=== PATIENT | male | born 1970 | race Two or more races ===

== ENCOUNTER 2018-02-21 23:56 | Inpatient (IN) | payer MEDICAID ==
[~2018-02-21] VITALS: Ht 170.2 cm; Wt 69.0 kg
[2018-02-22] VITALS (8 sets, daily range): BP systolic 107–149; BP diastolic 73–96
--- NOTE | 2018-02-22 00:05 | NUR ---
PT BIBA FROM RETIREMENT, PT PER EMT'S WASS ENT HERE FOR VOMITING COFFEE GROUND EMESIS X 3 HOURS PRIOR TO ARRIVAL,PT HAD ONE EPISODE OF VOMITING WHILE IN ER, PT IN BEDK, RT AT BEDSIDE, PT IS A TRACH TO VENT PT, VENT SETTINGS ARE AC 16, TIDAL VOLUME 450, O2 45%, PEEP OF 5, IV PLACED, LABS AND CULTURES DRAWN AND SENT TO LAB, AT BEDSIDE, WILL CONTINUE TO MONITOR.
[2018-02-22] MEDS ORDERED: ONDANSETRON HCL/PF 4 MG/2 ML VIAL ONE (00:19)
[2018-02-22] MEDS ORDERED: PANTOPRAZOLE 40 MG VIAL ONE (00:24)
--- NOTE | 2018-02-22 00:27 | NUR ---
PT RECEIVED FROM TRANSPORT VENTILATED VIA TRACH WITH VENTILATOR. PT PLACED ON VENT WITH SETTINGS PER TRANSPORT. AMBU BAG AT BEDSIDE ALARMS SET AND AUDIBLE. DISCONNECT ALARMS CHECKED. VENT PLUGGED INTO RED OUTLET. PT HAS INCREASED RR AT THIS TIME Addendum: 02/22/18 at 0030 by TYRONE DANIELS RT Amended: Links added.
[2018-02-22] MEDS ORDERED: PANTOPRAZOLE 80 MG in IV NS 0.9% 500 ML IV ONE (00:30)
[2018-02-22] MEDS ORDERED: PANTOPRAZOLE 80 MG in IV NS 0.9% 100 ML IV ONE (00:30)
[2018-02-22] MEDS ORDERED: IV NS 0.9% 500 ML BAG IV ONE (00:30)
[2018-02-22] MEDS ORDERED: ONDANSETRON HCL/PF 4 MG/2 ML VIAL IVP ONE (00:30)
[2018-02-22] MEDS ORDERED: ACETAMINOPHEN 650 MG/SUPP.RECT RC ONE ×2 (00:39→01:00)
[2018-02-22 00:45] LABS: BASOPHILS % (AUTO) 0.5 % (0.0-2.0); EOSINOPHILS % (AUTO) 0.7 % (0.0-6.0); HEMATOCRIT 39 % (39-51); HEMOGLOBIN 12.8 g/dL (13.5-17.5); LYMPHOCYTES # (AUTO) 1.2 /CMM (0.8-4.8); LYMPHOCYTES % (AUTO) 10.8 % (20.0-44.0); MEAN CORPUSCULAR HGB CONC 33 g/dl (31.0-36.0); MEAN CORPUSCULAR VOLUME 76 fL (80-96); MONOCYTES % (AUTO) 2.3 % (2.0-12.0); NEUTROPHILS # (AUTO) 9.5 /CMM (1.8-8.9); NEUTROPHILS % (AUTO) 85.7 % (43.0-81.0); PLATELET COUNT (AUTO) 405 /CMM (150-450); RDW COEFFICIENT OF VARIATION 15.8 (11.5-15.0); RED BLOOD CELL COUNT(AUTO) 5.16 MIL/uL (4.5-6.0)
[2018-02-22 00:46] LABS: BASOPHILS # (AUTO) 0.1 /CMM (0.0-0.2); MONOCYTES # (AUTO) 0.3 /CMM (0.1-1.30)
[2018-02-22 00:59] LABS: CALCIUM, SERUM 9.7 mg/dL (8.5-10.1); CARBON DIOXIDE 30 mmol/L (21-32); CHLORIDE 103 mmol/L (98-107); CREATININE 0.7 mg/dL (0.6-1.3); GLUCOSE 123 mg/dL (74-106); INR 0.93 (0.87-1.13); POTASSIUM 3.8 mmol/L (3.5-5.1); SODIUM SERUM 144 mmol/L (136-145); UREA NITROGEN, BLOOD 22 mg/dL (7-18)
--- NOTE | 2018-02-22 01:00 | NUR ---
BLAKE PLACED PER MD ORDER, URINE COLLECTED AND SENT TO LAB, WILL CONTINUE TO MONITOR.
[2018-02-22 01:03] LABS: ALANINE AMINOTRANSFERASE 47 U/L (12-78); ALBUMIN 3.7 g/dL (3.4-5.0); ALKALINE PHOSPHATASE 111 U/L (46-116); ASPARTATE AMINOTRANSFERASE 42 U/L (15-37); BILIRUBIN,DIRECT 0.1 mg/dL (0.0-0.2); BILIRUBIN,TOTAL 0.2 mg/dL (0.2-1.0); LIPASE 199 U/L (73-393); TOTAL PROTEIN, SERUM 9.7 g/dL (6.4-8.2)
[2018-02-22 01:06] LABS: TROPONIN I < 0.017 ng/mL (0.00-0.056)
[2018-02-22 01:10] LABS: APPEARANCE,URINE CLEAR (CLEAR); BILIRUBIN,URINE NEGATIVE (NEGATIVE); BLOOD, URINE 3+ Ery/uL (NEGATIVE); COLOR,URINE YELLOW (YELLOW); KETONES,URINE NEGATIVE (NEGATIVE); LEUKOCYTE ESTERASE ,URINE TRACE (NEGATIVE); NITRITE, URINE NEGATIVE (NEGATIVE); PH,URINE 8.5 (5.0-8.0); PROTEIN,URINE TRACE mg/dl (NEGATIVE); UGLUCOSE NEGATIVE (NEGATIVE); UROBILINOGEN,URINE 0.2 EU/dL (0.2)
--- NOTE | 2018-02-22 01:23 | NUR ---
PT GOING TO 117-1
[2018-02-22 01:37] LABS: BACTERIA,URINE None seen /HPF (None Seen); SQUAMOUS EPITHELIAL CELL,UR Few /HPF (None Seen)
--- NOTE | 2018-02-22 03:00 | NUR ---
PT SLEEPING IN BED, NAD NOTED MD PA MADE AWARE WILL CONITNUE TO MONITOR.
[2018-02-22] MEDS ORDERED: MAGNESIUM HYDROXIDE 30 ML UDC PO PRN (03:30)
[2018-02-22] MEDS ORDERED: Z GUARD REMEDY 2 OZ OINT TP PRN (03:30)
[2018-02-22] MEDS ORDERED: MAG HYDROX/AL HYDROX/SIMETH 30 ML UDC PO PRN (03:30)
[2018-02-22] MEDS ORDERED: ACETAMINOPHEN 325 MG TABLET PO PRN (03:30)
[2018-02-22] MEDS ORDERED: ONDANSETRON HCL/PF 4 MG/2 ML VIAL IVP PRN (03:30)
[2018-02-22] MEDS: IV NS 0.9% 1,000 ML IV PRN ×2 (04:06→17:26)
[2018-02-22] MEDS ORDERED: CEFTRIAXONE 1 G VIAL ONE (04:12)
[2018-02-22] MEDS ORDERED: LACT1CAP61 PO (05:02)
--- NOTE | 2018-02-22 05:08 | NUR ---
ADMISSION NOTES PATIENT CAME FROM ER @ 3:40. RECEIVED REPORT FROM SRIKANTH, ER NURSE. PATIENT CAME VIA GURNEY. CAME WITH PROTONIX DRIP RUNNING 52 ML PER HOUR. PATIENT WITH CLAMPLED GTUBE. ON TRACH/VENT. CLEANED PATIENT AND KEPT COMFORTABLE. ATTACHED TELE MONITOR. RECEIVED MEDS AND ADVANCED DIRECTIVES FROM [facility]. SPOKE WITH DR MC REGARDING PATIENT'S DNR STATUS IN HOSPITAL/
[2018-02-22] MEDS: CEFTRIAXONE 1 G in IV D5W 50 ML IV SCH (05:14)
[2018-02-22] MEDS ORDERED: DOCU-141 GT (06:12)
[2018-02-22] MEDS ORDERED: FOLI100T GT (06:12)
[2018-02-22] MEDS ORDERED: ONDA4TAB5 PO (06:12)
[2018-02-22] MEDS ORDERED: ASCO500T9 GT (06:12)
[2018-02-22] MEDS ORDERED: DEXL60CA3 GT (06:12)
[2018-02-22] MEDS ORDERED: LEVE1000 GT (06:12)
[2018-02-22] MEDS ORDERED: POTA20TA83 GT (06:12)
[2018-02-22] MEDS ORDERED: CHLO473M3 PO (06:12)
[2018-02-22] MEDS ORDERED: ACET-868 GT (06:12)
[2018-02-22] MEDS ORDERED: METO10PO GT (06:12)
[2018-02-22] MEDS ORDERED: IPRA3AMP23 IH ×2 (06:12)
[2018-02-22] MEDS ORDERED: FERR325T23 GT (06:12)
[2018-02-22] MEDS ORDERED: CRAN425C6 GT (06:12)
--- NOTE | 2018-02-22 16:06 | NUR ---
PT GISSELLE'D ON MECHANICAL VENT. SX DONE T/O SHIFT. PT GISSELLE PATENT AND SECURE. AMBU BAG AT BEDSIDE. VENT PLUGGED INTO RED OUTLET. ALARMS ARE ON AND AUDIBLE. Addendum: 02/22/18 at 1607 by PRADIP CHRISTOPHER RT Amended: Links added.
[2018-02-22] MEDS: HYDROCODONE/APAP 5/325MG 1 EACH TABLET PO PRN (19:59)
[2018-02-23] VITALS (7 sets, daily range): BP systolic 113–146; BP diastolic 55–82
[2018-02-23] MEDS: CEFTRIAXONE 1 G in IV D5W 50 ML IV SCH (02:52)
[2018-02-23 06:45] LABS: CALCIUM, SERUM 8.6 mg/dL (8.5-10.1); CREATININE 0.6 mg/dL (0.6-1.3); MAGNESIUM 2.4 mg/dL (1.8-2.4); PHOSPHORUS 3.1 mg/dL (2.5-4.9); POTASSIUM 3.7 mmol/L (3.5-5.1)
[2018-02-23 06:51] LABS: BASOPHILS % (AUTO) 0.5 % (0.0-2.0); EOSINOPHILS % (AUTO) 2.4 % (0.0-6.0); HEMATOCRIT 30 % (39-51); HEMOGLOBIN 9.8 g/dL (13.5-17.5); LYMPHOCYTES # (AUTO) 1.5 /CMM (0.8-4.8); LYMPHOCYTES % (AUTO) 22.1 % (20.0-44.0); MEAN CORPUSCULAR HGB CONC 33 g/dl (31.0-36.0); MEAN CORPUSCULAR VOLUME 77 fL (80-96); MONOCYTES # (AUTO) 0.3 /CMM (0.1-1.30); MONOCYTES % (AUTO) 4.2 % (2.0-12.0); NEUTROPHILS # (AUTO) 4.7 /CMM (1.8-8.9); NEUTROPHILS % (AUTO) 70.8 % (43.0-81.0); PLATELET COUNT (AUTO) 273 /CMM (150-450); RDW COEFFICIENT OF VARIATION 15.9 (11.5-15.0); RED BLOOD CELL COUNT(AUTO) 3.89 MIL/uL (4.5-6.0); WHITE BLOOD COUNT (AUTO) 6.7 K/uL (4.3-11.0)
[2018-02-23 07:07] LABS: THYROID STIMULATING HORMONE 0.425 uIU/mL (0.358-3.74)
[2018-02-23] MEDS: IV NS 0.9% 1,000 ML IV PRN (07:21)
--- NOTE | 2018-02-23 07:35 | NUR ---
RN OPENING NOTES RECEIVED PT. PT IS STABLE AND AWAKE/RESTING IN BED. PT IS OBTUNDED. TRACH/VENT DEPENDENT, VENT SETTINGS IN PLACE PER ORDER. IV ACCESS LOCATED ON LEFT THUMB 18G, CURRENTLY INFUSING NS AT 75 ML/HR. PT IS CURRENTLY NPO, WILL F/U WITH MD FOR NUTRITION INTAKE F/U. SAFETY MEASURES IN PLACE, CALL LIGHT WITHIN REACH. WILL CONTINUE TO MONITOR.
--- NOTE | 2018-02-23 17:40 | NUR ---
PATIENT RECEIVED TRACHED ON MECHANICAL VENTILATION. VENT PLUGGED INTO RED OUTLET. AMBU BAG @ HOB. SUCTION DONE, T/O SHIFT. MODERATE THICK YELLOW SECRETIONS NOTED. ALARMS ON AND AUDIBLE. NO SOB NOTED T/O SHIFT. MONITORED CLOSELY. Addendum: 02/23/18 at 1742 by WILL FRANKS RT Amended: Links added.
--- NOTE | 2018-02-23 18:22 | NUR ---
RN CLOSING NOTES PT IN BED RESTING. NO S/S OF RESP DISTRESS OR SOB, VENT SETTINGS REMAIN IN PLACE. PT DOES NOT APPEAR TOP BE IN PAIN AT THIS TIME. PT REMAINS NPO, HOWEVER IS ON IV FLUID INFUSION OF D5NS. LEFT THUMB IV PULLED OUT, 22G INSERTED ONTO LEFT FOOT. PT IS STILL AWAITING GI CONSULT FOR POTENTIAL BLEED. PT HAS HAD NO BM FOR OB STOOL COLLECTION. ALL PT NEEDS ANTICIPATED AND MET, SAFETY MEASURES IN PLACE, CALL LIGHT WITHIN REACH. WILL ENDORSE TO LITERACY COACH FOR MAXIMO.
[2018-02-23] MEDS: IV D5/ 0.9% NACL 1,000 ML IV PRN (18:49)
--- NOTE | 2018-02-23 20:00 | NUR ---
RECEIVED PATIENT IN BED. PATIENT IS CHRONIC VENT/TRACH, OBTUNDENT. VSS, AFEBRILE NO DISTRESS NOTED. PATIENT IS TURNED AND REPOSITIONED FOR MORE COMFORT. CONTINUE TO MONITOR
[2018-02-24] VITALS: BP 112/88
[2018-02-24 04:00] VITALS: BP 112/89
[2018-02-24] MEDS ORDERED: CEFTRIAXONE 1 G in IV NS 0.9% 50 ML IV SCH (04:00)
[2018-02-24] MEDS: IV D5/ 0.9% NACL 1,000 ML IV PRN ×2 (04:07→19:01)
[2018-02-24 08:00] VITALS: BP 136/71
--- NOTE | 2018-02-24 08:00 | NUR ---
ms rn received patient on bed,non verbal patient, vent dependent, no s/s of pain, reposition for comfort. all needs attended.
[2018-02-24 10:52] LABS: BASOPHILS % (AUTO) 0.5 % (0.0-2.0); EOSINOPHILS % (AUTO) 2.3 % (0.0-6.0); HEMATOCRIT 31 % (39-51); HEMOGLOBIN 10.1 g/dL (13.5-17.5); LYMPHOCYTES # (AUTO) 1.7 /CMM (0.8-4.8); LYMPHOCYTES % (AUTO) 25.3 % (20.0-44.0); MEAN CORPUSCULAR HGB CONC 33 g/dl (31.0-36.0); MEAN CORPUSCULAR VOLUME 76 fL (80-96); MONOCYTES # (AUTO) 0.5 /CMM (0.1-1.30); MONOCYTES % (AUTO) 6.7 % (2.0-12.0); NEUTROPHILS # (AUTO) 4.5 /CMM (1.8-8.9); NEUTROPHILS % (AUTO) 65.2 % (43.0-81.0); PLATELET COUNT (AUTO) 275 /CMM (150-450); RDW COEFFICIENT OF VARIATION 15.9 (11.5-15.0); RED BLOOD CELL COUNT(AUTO) 4.07 MIL/uL (4.5-6.0); WHITE BLOOD COUNT (AUTO) 6.9 K/uL (4.3-11.0)
--- NOTE | 2018-02-24 11:00 | NUR ---
ms rn was seen by [place] [facility] w/ order to put pt on npo, until cleared by gi.
[2018-02-24 11:02] LABS: CREATININE 0.5 mg/dL (0.6-1.3); POTASSIUM 3.4 mmol/L (3.5-5.1)
[2018-02-24] MEDS: LEVETIRACETAM SOL (5 ML) 100 MG/ML UDC GT SCH ×2 (11:57→21:34)
[2018-02-24 12:00] VITALS: BP 124/72
[2018-02-24] MEDS ORDERED: ONDANSETRON 4 MG TAB.RAPDIS PO PRN (12:00)
[2018-02-24] MEDS ORDERED: Medication Not On Formulary EA (Ipratropium/Albuterol Sulfate (Duoneb 2.5-0.5 Mg/3 Ml So IH SCH (12:00)
[2018-02-24] MEDS ORDERED: Medication Not On Formulary EA (Ipratropium/Albuterol Sulfate (Duoneb 2.5-0.5 Mg/3 Ml So IH PRN (12:00)
[2018-02-24] MEDS: LACTOBACILLUS RHAMNOSUS GG 1 EACH CAP.SPRINK PO SCH (12:00)
[2018-02-24] MEDS: POTASSIUM CL. PREMIX PERIPHER. 50 ML IV SCH ×2 (13:07→17:27)
[2018-02-24] MEDS: METOCLOPRAMIDE HCL 10 MG/10 ML UDC GT SCH ×2 (13:30→17:27)
[2018-02-24] MEDS: ALBUTEROL FS 2.5 MG/3 ML VIAL.NEB NEB SCH ×2 (13:30→20:19)
[2018-02-24] MEDS ORDERED: IPRATROPIUM NEB FS 0.5 MG/2.5 ML AMPUL.NEB NEB PRN (13:30)
[2018-02-24] MEDS: IPRATROPIUM NEB FS 0.5 MG/2.5 ML AMPUL.NEB NEB SCH ×2 (13:30→20:19)
[2018-02-24] MEDS ORDERED: ALBUTEROL FS 2.5 MG/3 ML VIAL.NEB NEB PRN (13:30)
--- NOTE | 2018-02-24 15:05 | NUR ---
RT 1300 TX NOT GIVEN RT NOT MADE AWARE WILL CONTINUE TXS
[2018-02-24 16:00] VITALS: BP 108/75
--- NOTE | 2018-02-24 16:00 | NUR ---
ms rn was seen by tonia martínez,endy multani w/ order to continue/start feeding and npo post midnight, fo egd in am.
--- NOTE | 2018-02-24 16:20 | NUR ---
ms rn callled mom for telephone consent, line is disconnected. called brother, no one answering phone, left message for egd consent to be done.
[2018-02-24] MEDS ORDERED: Medication Not On Formulary EA (Cranberry Extract (Cranberry) 425 MG) GT SCH (17:00)
--- NOTE | 2018-02-24 17:21 | NUR ---
RT PATIENT RECEIVED TRACHED ON MECHANICAL VENTILATION. VENT PLUGGED INTO RED OUTLET. AMBU BAG @ HOB. SUCTION DONE, T/O SHIFT. MODERATE THICK YELLOW SECRETIONS NOTED. ALARMS ON AND AUDIBLE. NO SOB NOTED T/O SHIFT. MONITORED CLOSELY.
[2018-02-24] MEDS: FERROUS SULFATE (325 MG) 325 MG/TAB TABLET GT SCH (17:27)
[2018-02-24] MEDS: CHLORHEXIDINE GLUCONATE 15 ML UDC MM SCH (17:28)
--- NOTE | 2018-02-24 18:44 | NUR ---
ms nr called brother again for consent, left message, awaiting for him to call back.
[2018-02-24 20:00] VITALS: BP 134/76
[2018-02-24] MEDS: HYDROCODONE/APAP 5/325MG 1 EACH TABLET PO PRN (21:34)
[2018-02-25] VITALS (8 sets, daily range): BP systolic 58–145; BP diastolic 58–96
[2018-02-25] MEDS: METOCLOPRAMIDE HCL 10 MG/10 ML UDC GT SCH ×4 (00:41→19:31)
[2018-02-25] MEDS: ALBUTEROL FS 2.5 MG/3 ML VIAL.NEB NEB SCH ×4 (01:24→20:16)
[2018-02-25] MEDS: IPRATROPIUM NEB FS 0.5 MG/2.5 ML AMPUL.NEB NEB SCH ×4 (01:24→20:16)
[2018-02-25 07:08] LABS: BASOPHILS # (AUTO) 0.1 /CMM (0.0-0.2); BASOPHILS % (AUTO) 0.9 % (0.0-2.0); EOSINOPHILS % (AUTO) 2.5 % (0.0-6.0); HEMATOCRIT 36 % (39-51); HEMOGLOBIN 11.6 g/dL (13.5-17.5); LYMPHOCYTES # (AUTO) 1.6 /CMM (0.8-4.8); LYMPHOCYTES % (AUTO) 24.4 % (20.0-44.0); MEAN CORPUSCULAR HGB CONC 32 g/dl (31.0-36.0); MEAN CORPUSCULAR VOLUME 77 fL (80-96); MONOCYTES # (AUTO) 0.3 /CMM (0.1-1.30); MONOCYTES % (AUTO) 4.4 % (2.0-12.0); NEUTROPHILS # (AUTO) 4.5 /CMM (1.8-8.9); NEUTROPHILS % (AUTO) 67.8 % (43.0-81.0); PLATELET COUNT (AUTO) 233 /CMM (150-450); RDW COEFFICIENT OF VARIATION 15.8 (11.5-15.0); RED BLOOD CELL COUNT(AUTO) 4.67 MIL/uL (4.5-6.0); WHITE BLOOD COUNT (AUTO) 6.7 K/uL (4.3-11.0)
[2018-02-25 07:14] LABS: ALBUMIN 3.2 g/dL (3.4-5.0); BILIRUBIN,TOTAL 0.2 mg/dL (0.2-1.0); CALCIUM, SERUM 9.1 mg/dL (8.5-10.1); CREATININE 0.6 mg/dL (0.6-1.3); PHOSPHORUS 3.8 mg/dL (2.5-4.9); POTASSIUM 3.8 mmol/L (3.5-5.1); TOTAL PROTEIN, SERUM 8.5 g/dL (6.4-8.2)
[2018-02-25] MEDS ORDERED: PANTOPRAZOLE 40 MG TABLET.DR PO SCH ×2 (07:30→17:00)
--- NOTE | 2018-02-25 08:00 | NUR ---
WOOD TOOL MAKER AM NOTES RECEIVED PT. PT IS STABLE AND AWAKE/RESTING IN BED. PT IS OBTUNDED. TRACH/VENT DEPENDENT, VENT SETTINGS IN PLACE PER ORDER. IV ACCESS LOCATED ON RT HAND #[id number] CURRENTLY INFUSING D5NS AT 75 ML/HR. PT IS CURRENTLY NPO, WITH PENDING EGD PROCEDURE DUE TO PENDING CONSENTS TO BE SIGNED.CALLED PT'S BROTHER SEVERAL TIMES SINCE YESTERDAY AND ATTEMPTED TO CALL HIM AGAIN THIS AM 2X AND LEFT A MESSAGE IN HIS VM.AWAITING FOR LEVAR TO RETURN CALL.SAFETY MEASURES IN PLACE, CALL LIGHT WITHIN REACH. WILL CONTINUE TO MONITOR.
[2018-02-25] MEDS: ASCORBIC ACID 500 MG TABLET GT SCH (08:21)
[2018-02-25] MEDS: MULTIPLE VIT (LYCOPENE/FA/MV,CA,IRON,MIN/LUT)1 TAB GT SCH (08:21)
[2018-02-25] MEDS: FERROUS SULFATE (325 MG) 325 MG/TAB TABLET GT SCH ×2 (08:21→16:30)
[2018-02-25] MEDS: LEVETIRACETAM SOL (5 ML) 100 MG/ML UDC GT SCH ×2 (08:21→21:05)
[2018-02-25] MEDS: LACTOBACILLUS RHAMNOSUS GG 1 EACH CAP.SPRINK PO SCH (08:22)
[2018-02-25] MEDS: POTASSIUM CHLORIDE 20 MEQ TAB.PRT.SR PO SCH (08:22)
[2018-02-25] MEDS: CHLORHEXIDINE GLUCONATE 15 ML UDC MM SCH ×2 (08:23→16:30)
[2018-02-25] MEDS ORDERED: Medication Not On Formulary EA (Dexlansoprazole (Dexilant) 30 MG) GT SCH (09:00)
[2018-02-25] MEDS ORDERED: DOCUSATE SODIUM 100 MG CAPSULE PO SCH (09:00)
--- NOTE | 2018-02-25 09:34 | NUR ---
CALLED PT'S BROTHER,LEVAR SALINAS AND ABLE TO OBTAIN CONSENTS VIA PHONE FOR EGD PROCEDURE.CALLED [facility] AND SPOKE TO MARCY SAYING SHE WILL CHECK WITH ME ABOUT THE EGD PROCEDURE.
[2018-02-25] MEDS: IV D5/ 0.9% NACL 1,000 ML IV PRN (10:46)
--- NOTE | 2018-02-25 11:41 | NUR ---
S/P EGD PROCEDURE DONE BY DONNIE DUMONT WITH STABLE V/S.BP 125/84 HR 89 RR 16 T 98.2 AND 96% O2 SAT.RESUMED ALL MEDS AND FEEDING PER MD.
[2018-02-25] MEDS ORDERED: JEVITY 1.2 CAL 1,000 ML BOTTLE GT PRN (13:00)
[2018-02-25] MEDS: JEVITY 1.2 CAL 1,000 ML BOTTLE GT PRN (15:47)
[2018-02-25] MEDS: HYDROCODONE/APAP 5/325MG 1 EACH TABLET PO PRN ×2 (16:30→21:06)
--- NOTE | 2018-02-25 18:18 | NUR ---
PT RESTING IN BED WITH ONGOING JEVITY GT FEEDING RUNNING AT 35 ML/HR TOLERATING WELL.WITH HOB ELEVATED.SUCTIONED LARGE AMOUNT OF SALIVA SECRETIONS.TRACH CARE DONE OFTEN.KEPT CLEAN AND DRY.NO S/S OF SOB OR DISCOMFORT.NORCO GIVEN IS EFFECTIVE WITH ONGOING IVF OF D5NS AT 75 ML/HR INFUSING WELL TO RT HAND.
[2018-02-26] VITALS: BP 103/46
[2018-02-26] MEDS: ALBUTEROL FS 2.5 MG/3 ML VIAL.NEB NEB SCH ×4 (02:11→19:52)
[2018-02-26] MEDS: IPRATROPIUM NEB FS 0.5 MG/2.5 ML AMPUL.NEB NEB SCH ×4 (02:11→19:52)
[2018-02-26] MEDS: METOCLOPRAMIDE HCL 10 MG/10 ML UDC GT SCH ×4 (02:45→20:20)
[2018-02-26 04:00] VITALS: BP 116/62
[2018-02-26] MEDS: IV D5/ 0.9% NACL 1,000 ML IV PRN ×2 (05:14→16:52)
[2018-02-26] MEDS: HYDROCODONE/APAP 5/325MG 1 EACH TABLET PO PRN ×2 (05:14→12:30)
[2018-02-26 07:12] LABS: BASOPHILS # (AUTO) 0.1 /CMM (0.0-0.2); BASOPHILS % (AUTO) 0.9 % (0.0-2.0); EOSINOPHILS % (AUTO) 2.3 % (0.0-6.0); HEMATOCRIT 35 % (39-51); LYMPHOCYTES % (AUTO) 25.8 % (20.0-44.0); MEAN CORPUSCULAR HGB CONC 32 g/dl (31.0-36.0); MEAN CORPUSCULAR VOLUME 77 fL (80-96); MONOCYTES # (AUTO) 0.5 /CMM (0.1-1.30); MONOCYTES % (AUTO) 5.8 % (2.0-12.0); NEUTROPHILS # (AUTO) 5.1 /CMM (1.8-8.9); NEUTROPHILS % (AUTO) 65.2 % (43.0-81.0); RDW COEFFICIENT OF VARIATION 15.8 (11.5-15.0); WHITE BLOOD COUNT (AUTO) 7.8 K/uL (4.3-11.0)
--- NOTE | 2018-02-26 07:20 | NUR ---
television actor initial notes Received patient in bed, awake, head of bed elevated, no SOB or distress noted, on mechanical vent and tolerated well, 02 sat of 98%, IV intact and patent with IVF infusing well. Jevity infusing well@ 35ml/hr. Patient is obtunded, open his eyes. On tele monitor SR heart rate of 80, no facial grimace noted. Cortes in placed attached to drainage bag. Will continue to monitor accordingly.
[2018-02-26 08:00] VITALS: BP 153/86
[2018-02-26 08:00] LABS: PLATELET COUNT (AUTO) 227 /CMM (150-450)
[2018-02-26 08:39] LABS: CREATININE 0.6 mg/dL (0.6-1.3); MAGNESIUM 2.2 mg/dL (1.8-2.4); PHOSPHORUS 3.7 mg/dL (2.5-4.9); POTASSIUM 3.6 mmol/L (3.5-5.1)
[2018-02-26] MEDS: ACETAMINOPHEN 650 MG/20.3 ML UDC PO PRN (08:53)
[2018-02-26] MEDS: ASCORBIC ACID 500 MG TABLET GT SCH (08:53)
[2018-02-26] MEDS: CHLORHEXIDINE GLUCONATE 15 ML UDC MM SCH ×2 (08:53→16:43)
[2018-02-26] MEDS: MULTIPLE VIT (LYCOPENE/FA/MV,CA,IRON,MIN/LUT)1 TAB GT SCH (08:53)
[2018-02-26] MEDS: LEVETIRACETAM SOL (5 ML) 100 MG/ML UDC GT SCH ×2 (08:53→20:20)
[2018-02-26] MEDS: POTASSIUM CHLORIDE 20 MEQ TAB.PRT.SR PO SCH (08:53)
[2018-02-26] MEDS: FERROUS SULFATE (325 MG) 325 MG/TAB TABLET GT SCH ×2 (08:53→16:43)
[2018-02-26] MEDS: LACTOBACILLUS RHAMNOSUS GG 1 EACH CAP.SPRINK PO SCH (08:53)
[2018-02-26] MEDS: DOCUSATE SODIUM LIQ 100 MG/10 ML UDC GT SCH (09:51)
[2018-02-26] MEDS: PANTOPRAZOLE 40 MG VIAL IV SCH (09:51)
[2018-02-26] MEDS ORDERED: PANT40TA2 PO (10:31)
[2018-02-26 12:00] VITALS: BP 132/78
[2018-02-26 16:00] VITALS: BP 121/62
[2018-02-26] MEDS: JEVITY 1.2 CAL 1,000 ML BOTTLE GT PRN (16:48)
--- NOTE | 2018-02-26 19:21 | NUR ---
telegraph installer closing notes All needs provided, attended, and anticipated, patient in stable condition. Endorsed to next shift RN to continue care. Call light with in reach.
--- NOTE | 2018-02-26 19:35 | NUR ---
telegraph service rater initial notes Received patient in bed, awake, head of bed elevated, no SOB or distress noted, on mechanical vent and tolerated well, 02 sat of 100%, IV intact and patent to right hand, with IVF infusing well. Jevity infusing well @ 35ml/hr. Patient is obtunded, open his eyes. On tele monitor SR heart rate of 71/min, no facial grimace noted. Cortes in placed attached to drainage bag draining yellow clear urine. bed in low locked position, call light within reach, safety measures in place. Will continue to monitor accordingly.
[2018-02-26 20:00] VITALS: BP 119/66
[2018-02-27] VITALS (7 sets, daily range): BP systolic 113–151; BP diastolic 74–82
[2018-02-27] MEDS: IPRATROPIUM NEB FS 0.5 MG/2.5 ML AMPUL.NEB NEB SCH ×4 (01:34→20:44)
[2018-02-27] MEDS: ALBUTEROL FS 2.5 MG/3 ML VIAL.NEB NEB SCH ×4 (01:34→20:43)
[2018-02-27] MEDS: METOCLOPRAMIDE HCL 10 MG/10 ML UDC GT SCH ×4 (01:54→20:46)
--- NOTE | 2018-02-27 02:10 | NUR ---
RATE AND COST ANALYST NOTE NO MAXIMO NOTED @ THIS TIME, PT NOTED TO BE CLOSING HIS EYES INTERMITTENTLY. HOB ELEVATED. MONITORING CLOSELY.
[2018-02-27] MEDS: IV D5/ 0.9% NACL 1,000 ML IV PRN (05:54)
[2018-02-27] MEDS: HYDROCODONE/APAP 5/325MG 1 EACH TABLET PO PRN (06:44)
--- NOTE | 2018-02-27 06:44 | NUR ---
telesales team leader closing notes pt resting in bed, slept intermittently, awake now , head of bed elevated, no SOB or distress noted, on mechanical vent and tolerated well, 02 sat of 97%, IV intact and patent to left foot with IVF infusing well. prn norco given using a FLACC scale, pt was restless & irritable with facial grimacing. Jevity infusing well @ 35ml/hr. Patient is obtunded, open his eyes. On tele monitor SR heart rate of 94/min, Cortes in placed attached to drainage bag draining yellow clear urine. all needs attended to & met. bed in low locked position, call light within reach, safety measures in place. Will endorse to am rn to monitor closely for any thanh.
--- NOTE | 2018-02-27 08:00 | NUR ---
TELE1/RN AM SHIFT INITIAL NOTES RECEIVED PT AWAKE IN BED. PT OBTUNDED, OPEN EYES, NO ACTIVE BLEEDING NOTED OR ACUTE CHANGE OF CONDITION NOTED. VENTILATOR DEPENDENT WITH RATES SET PRESCRIBED, SATURATING @ 100%, LUNG SOUNDS DIMINISHED. ON TELE WITH SINUS TACHY, HR 101, IV SITE WITH ON GOING IV INFUSION OF NS @ 75CC/HR, PATENT. BLAKE CATHETER INTACT WITH YELLOW URINE OUTPUT. PT NOTED TO BE VERY CONTRACTED, WITH FEVER 102.2, COOLING MEASURES BEING RENDERED, PRIMARY MD TO BE NOTIFIED. SCHEDULED AM MEDS TO BE GIVEN. CL WITHIN REACHED AND SAFETY MAINTAINED. ON GOING MONITORING.
[2018-02-27] MEDS: LACTOBACILLUS RHAMNOSUS GG 1 EACH CAP.SPRINK PO SCH (08:53)
[2018-02-27] MEDS: ASCORBIC ACID 500 MG TABLET GT SCH (08:53)
[2018-02-27] MEDS: DOCUSATE SODIUM LIQ 100 MG/10 ML UDC GT SCH (08:53)
[2018-02-27] MEDS: POTASSIUM CHLORIDE 20 MEQ TAB.PRT.SR PO SCH (08:53)
[2018-02-27] MEDS: PANTOPRAZOLE 40 MG VIAL IV SCH (08:53)
[2018-02-27] MEDS: LEVETIRACETAM SOL (5 ML) 100 MG/ML UDC GT SCH ×2 (08:53→20:46)
[2018-02-27] MEDS: FERROUS SULFATE (325 MG) 325 MG/TAB TABLET GT SCH ×2 (08:53→16:18)
[2018-02-27] MEDS: CHLORHEXIDINE GLUCONATE 15 ML UDC MM SCH ×2 (08:53→16:18)
[2018-02-27] MEDS: MULTIPLE VIT (LYCOPENE/FA/MV,CA,IRON,MIN/LUT)1 TAB GT SCH (08:54)
[2018-02-27] MEDS: ACETAMINOPHEN 650 MG/20.3 ML UDC PO PRN ×2 (09:05→23:43)
[2018-02-27] MEDS ORDERED: VANCOMYCIN 1 GM in IV NS 0.9% 250 ML IV ONE (12:30)
--- NOTE | 2018-02-27 12:30 | NUR ---
TELE1/RN NOON ROUNDS PT SEEN & EXAMINED BY DR. CHIANG, WITH NEW ORDERS RECEIVED. URINE COLLECTED FOR CULTURE. PT'S TEMPERATURE REDUCED TO 98.7, PT TO START WITH ATB THERAPY. ON GOING MONITORING.
[2018-02-27] MEDS: MEROPENEM 1 G in IV NS 0.9% 100 ML IV SCH ×2 (13:13→20:46)
[2018-02-27 14:35] LABS: CALCIUM, SERUM 8.9 mg/dL (8.5-10.1); CREATININE 0.7 mg/dL (0.6-1.3); POTASSIUM 4.1 mmol/L (3.5-5.1)
[2018-02-27] MEDS ORDERED: FEE PK DOSING 1 MIN EA MC ONE (14:54)
[2018-02-27] MEDS: VANCOMYCIN 1 GM in IV NS 0.9% 250 ML IV SCH ×2 (16:18→23:43)
--- NOTE | 2018-02-27 20:02 | NUR ---
RN NOTES PT RECIEVED IN BED STABLE CONDITION. PT ON VENT. PT OBTUNDED. TELE SR 92. POSITIVE BLISTER WEEPING LEFT LOWER LEG. ALL OTHER SKINS INTACT. TRISH IV INSERTED WITH GOOD BLOOD RETURN. NEGATIVE OTHER DISTRESS. WILL CONTINUE TO MONITOR. BED LOWEST AND LOCKED POSITION.
--- NOTE | 2018-02-27 20:30 | NUR ---
TELE1/RN AM SHIFT END NOTES ACUTE CHANGE OF CONDITION NOTED, MD AWARE AND HAS STARTED TX. LEFT LOWER LEG STILL REDDENED AND WEEPING CLEAR SEROUS DRAINAGE, SOME BLISTERS POPPED ALREADY, REMOVED IV SITE TO PROTECT THE SITE. NO FEVER AT THE END OF SHIFT. ALL NEEDS MET. PT ENDORSED TO PM NURSE TO CONTINUE CARE. CL WITHIN REACHED AND SAFETY MAINTAINED.
[2018-02-27] MEDS: JEVITY 1.2 CAL 1,000 ML BOTTLE GT PRN (20:51)
[2018-02-28] VITALS (7 sets, daily range): BP systolic 95–151; BP diastolic 58–85
[2018-02-28] MEDS: HYDROCODONE/APAP 5/325MG 1 EACH TABLET PO PRN (00:41)
[2018-02-28] MEDS: IPRATROPIUM NEB FS 0.5 MG/2.5 ML AMPUL.NEB NEB SCH ×4 (01:06→20:00)
[2018-02-28] MEDS: ALBUTEROL FS 2.5 MG/3 ML VIAL.NEB NEB SCH ×4 (01:06→20:00)
--- NOTE | 2018-02-28 01:08 | NUR ---
ALBUTEROL NOT GIVEN DUE HR > 120BPM. CHERI COFFEY AWARE Addendum: 02/28/18 at 0109 by NITZA RIVERA RT Amended: Links added.
[2018-02-28] MEDS: METOCLOPRAMIDE HCL 10 MG/10 ML UDC GT SCH ×4 (02:12→18:26)
[2018-02-28] MEDS: IV D5/ 0.9% NACL 1,000 ML IV PRN ×2 (04:13→14:16)
[2018-02-28] MEDS: MEROPENEM 1 G in IV NS 0.9% 100 ML IV SCH ×3 (04:52→20:30)
--- NOTE | 2018-02-28 06:45 | NUR ---
RN NOTES PT NOTED WITH EPISODE OF TACHYPNEA AND TACHYCARDIA. PT REPOSITIONED AND COOLING MEASURES IN PLACE TO DO LOW GRADE FEVER.NORCO 5/325 VIA GT GIVEN. CURRENTLY PT IN STABLE IN CONDITION WITH TELE SR 83. VENT SETTINGS WELL TOLERATED. ALL NEEDS ATTENDED TO. KEPT CLEAN AND DRY. SUCTIONED NEEDED. WILL ENDORSE TO NEXT RN FOR CONTINUITY OF CARE
[2018-02-28 07:52] LABS: BASOPHILS % (AUTO) 0.1 % (0.0-2.0); EOSINOPHILS % (AUTO) 1.5 % (0.0-6.0); HEMATOCRIT 33 % (39-51); HEMOGLOBIN 10.6 g/dL (13.5-17.5); LYMPHOCYTES # (AUTO) 2.4 /CMM (0.8-4.8); LYMPHOCYTES % (AUTO) 16.5 % (20.0-44.0); MEAN CORPUSCULAR HGB CONC 32 g/dl (31.0-36.0); MEAN CORPUSCULAR VOLUME 77 fL (80-96); MONOCYTES # (AUTO) 0.6 /CMM (0.1-1.30); MONOCYTES % (AUTO) 3.9 % (2.0-12.0); NEUTROPHILS # (AUTO) 11.2 /CMM (1.8-8.9); PLATELET COUNT (AUTO) 173 /CMM (150-450); RDW COEFFICIENT OF VARIATION 15.9 (11.5-15.0); RED BLOOD CELL COUNT(AUTO) 4.34 MIL/uL (4.5-6.0); WHITE BLOOD COUNT (AUTO) 14.4 K/uL (4.3-11.0)
[2018-02-28 07:54] LABS: CALCIUM, SERUM 8.7 mg/dL (8.5-10.1); CREATININE 0.6 mg/dL (0.6-1.3); PHOSPHORUS 3.3 mg/dL (2.5-4.9); POTASSIUM 3.6 mmol/L (3.5-5.1)
[2018-02-28] MEDS: DOCUSATE SODIUM LIQ 100 MG/10 ML UDC GT SCH (09:00)
--- NOTE | 2018-02-28 09:00 | NUR ---
Rn- nurses notes, received pt in bed obtuned, vent in place at same setting, gt at 35ml/h jevity tolerated well, f/c draining yellow urine, re[positioned for comfort.
[2018-02-28] MEDS ORDERED: RXVAN XX (10:22)
[2018-02-28] MEDS ORDERED: MERO1VIA IV (10:22)
[2018-02-28] MEDS: PANTOPRAZOLE 40 MG VIAL IV SCH (11:05)
[2018-02-28] MEDS: LEVETIRACETAM SOL (5 ML) 100 MG/ML UDC GT SCH ×2 (11:05→20:30)
[2018-02-28] MEDS: VANCOMYCIN 1 GM in IV NS 0.9% 250 ML IV SCH (11:05)
[2018-02-28] MEDS: POTASSIUM CHLORIDE 20 MEQ TAB.PRT.SR PO SCH (11:06)
[2018-02-28] MEDS: CHLORHEXIDINE GLUCONATE 15 ML UDC MM SCH ×2 (11:06→18:26)
[2018-02-28] MEDS: MULTIPLE VIT (LYCOPENE/FA/MV,CA,IRON,MIN/LUT)1 TAB GT SCH (11:06)
[2018-02-28] MEDS: LACTOBACILLUS RHAMNOSUS GG 1 EACH CAP.SPRINK PO SCH (11:06)
[2018-02-28] MEDS: ASCORBIC ACID 500 MG TABLET GT SCH (11:06)
--- NOTE | 2018-02-28 12:00 | NUR ---
Rn NUrses notes, pt in bed suctionvia trhach tick muccoid secreation, x1 emesis whitish secreation, repositioned for comfort.
--- NOTE | 2018-02-28 12:33 | NUR ---
WOUND CARE CONSULT: PT SEEN FOR LEFT LOWER LEG AND FOOT EDEMA AND OPEN BLISTERS WITH CLEAR FLUID. RECOMMENDATIONS MADE AND DISCUSSED WITH NURSING STAFF AND POWER LINEMAN. SACRAL SCARRING ALSO NOTED. WILL SEE PRN. HERNÁNDEZ IN AGREEMENT WITH PLAN OF CARE. Addendum: 02/28/18 at 1234 by RAOUL HAYES WNDNU Amended: Links added.
[2018-02-28] MEDS ORDERED: FERROUS SULFATE UDC 300 MG/5 ML UDC GT SCH (17:00)
--- NOTE | 2018-02-28 17:25 | NUR ---
Pt has orders to dc to [facility] report WAS called to Aubrie [phone], pt is stable will be transfer via ambulance, dressing to [facility] annita nelson.
--- NOTE | 2018-02-28 19:30 | NUR ---
FLOAT PHLEBOTOMIST INITIAL NOTE PT RECEIVED AWAKE WITH OPEN EYES. OBTUNDED. ON MECH VENT WITH SETTINGS WELL TOLERATED AND SATURATING WELL. HOB ELEVATED. TELE- SR 80'S. PT CONFIRMED TO BE PICKED UP AT 8PM VIA AMBULANCE TO BE TRANSFERRED BACK TO [facility]. WILL CONTINUE TO MONITOR.
[2018-02-28] MEDS ORDERED: VANCOMYCIN 0.75 GM in IV D5W 250 ML IV SCH (21:00)
--- NOTE | 2018-02-28 22:01 | NUR ---
BLOCKER AND CUTTER CONTACT LENS NOTE AMBULANCE PICKED UP PT. TRANSFERRED SAFELY TO [facility] WITH RT AT BEDSIDE. VENT SETTINGS WELL TOLERATED. NO ACUTE DISTRESS NOTED. HOB ELEVATED. GTUBE CLAMPED. PT LEFT THE UNIT SAFELY.
== END 2018-02-28 22:13 | DRG 243 ==
LOC: ER 23:59 → TELE-TD 02-22 02:43 → TELE1 02-22 09:58
PROVIDERS: ADMIT Nurse Practitioner Acute Care; ATTEND Nurse Practitioner Acute Care
PROC: 5A1955Z Respiratory Ventilation, Greater than 96 Consecutive Hours (ICD-10-PCS; principal; 2018-02-22)
PROC: 0DJ08ZZ Inspection of Upper Intestinal Tract, Via Natural or Artificial Opening Endoscopic (ICD-10-PCS; 2018-02-25)
DX: K22.11 Ulcer of esophagus with bleeding (principal); R40.3 Persistent vegetative state; G93.1 Anoxic brain damage, not elsewhere classified; Z99.11 Dependence on respirator [ventilator] status; J96.11 Chronic respiratory failure with hypoxia; R53.2 Functional quadriplegia; Z93.0 Tracheostomy status; Z93.1 Gastrostomy status; I25.2 Old myocardial infarction; G40.909 Epilepsy, unspecified, not intractable, without status epilepticus; Z86.74 Personal history of sudden cardiac arrest; I10 Essential (primary) hypertension; N39.0 Urinary tract infection, site not specified; Z87.820 Personal history of traumatic brain injury; K44.9 Diaphragmatic hernia without obstruction or gangrene; F09 Unspecified mental disorder due to known physiological condition; Q63.1 Lobulated, fused and horseshoe kidney; N20.0 Calculus of kidney; M62.40 Contracture of muscle, unspecified site; D63.8 Anemia in other chronic diseases classified elsewhere; M62.50 Muscle wasting and atrophy, not elsewhere classified, unspecified site; R73.9 Hyperglycemia, unspecified; R13.10 Dysphagia, unspecified; K29.71 Gastritis, unspecified, with bleeding; R50.9 Fever, unspecified
CPT/HCPCS: 31720; 36415; 71045-TC; 80048-TC; 80053-TC; 80061-TC; 80076-TC; 80202-TC; 81000-TC; 83605-TC; 83690-TC; 83735-TC; 84100-TC; 84443-TC; 84484-TC; 85025-TC; 85730-TC; 86850-TC; 87040-TC; 87081-TC; 87086-TC; 94002-TC; 94003-TC; 94760-TC; 94762-TC; 99082-TC; A4216; A4606; A6253; A6402; A6403; A7526; C9113; J0696; J1953; J2185; J2405; J2704; J3370; J3480; J7030; J7040; J7042; J7050; J7060; J8597; Z7610